=== PATIENT | female | born 1975 | race African-American/Black ===

== ENCOUNTER 2017-07-29 19:54 | Inpatient (IN) | payer MEDICAID ==
[~2017-07-29] VITALS: Ht 162.6 cm; Wt 96.6 kg
[2017-07-29] MEDS ORDERED: DEXT 5%/LR + PITOCIN 20UNITS/L 1,000 ML IV SCH (21:24)
[2017-07-29] MEDS ORDERED: MISOPROSTOL 100MCG TABLET VG SCH (21:30)
[2017-07-29] MEDS ORDERED: METHYLERGONOVINE MALEATE 0.2 MG/ML IM PRN (21:30)
[2017-07-29] MEDS ORDERED: NALOXONE HCL 0.4 MG/ML 1ML VIAL IM PRN (21:30)
[2017-07-29] MEDS ORDERED: BUTORPHANOL TARTRATE 2 MG/ML VIAL IV PRN (21:30)
[2017-07-29] MEDS ORDERED: LIDOCAINE HCL/PF 1% 10 MG/ML 30ML VIAL INFIL NR (21:30)
[2017-07-29] MEDS ORDERED: CARBOPROST TROMETHAMINE 250 MCG/ML AMPUL IM PRN (21:30)
[2017-07-29] MEDS: LACTATED RINGERS 1,000 ML IV SCH ×2 (22:15→23:10)
[2017-07-29] MEDS: CLINDAMYCIN 900 MG in DEXTROSE 5% WATER 50 ML IV SCH (22:16)
[2017-07-29 22:25] LABS: CLARITY URINE CLEAR (CLEAR); COLOR URINE YELLOW (YELLOW); KETONES URINE NEGATIVE (NEGATIVE); LEUKOCYTE ESTERASE URINE TRACE (NEGATIVE); NITRITE URINE NEGATIVE (NEGATIVE); OCCULT BLOOD URINE NEGATIVE (NEGATIVE); PH URINE 6.5 (4.5-8.0); PROTEIN URINE NEGATIVE (NEGATIVE); SPECIFIC GRAVITY URINE 1.007 (1.005-1.030); UROBILINOGEN URINE 0.2 E.U./dL (0.2-1.0)
[2017-07-29 22:28] LABS: BASOPHILS % 0.8 % (0.0-2.0); EOSINOPHILS % 1.1 % (0.0-5.0); HEMATOCRIT. 38.1 % (36.0-48.0); HEMOGLOBIN. 12.7 g/dL (12.0-16.0); LYMPHOCYTES % 37.5 % (20.0-50.0); MEAN CORPUSCULAR VOLUME 93.4 fL (81.0-99.0); MEAN PLATELET VOLUME 8.5 fl (7.4-10.4); MONOCYTES % 9.1 % (2.0-8.0); NEUTROPHILS % 51.5 % (40.0-76.0); PLATELET 240 x1000/uL (130-400); RED BLOOD CELL COUNT 4.08 mill/uL (4.2-5.4); RED CELL DISTRIBUTION WIDTH 15.1 % (11.6-14.6)
[2017-07-29 22:34] LABS: PARTIAL THROMBOPLASTIN TIME 27.8 sec (23.4-31.0); PROTHROMBIN TIME 10.1 sec (9.4-11.6)
[2017-07-29 22:34] LABS: *AMPHETAMINES SCREEN URINE NEGATIVE (NEGATIVE)
[2017-07-29 22:35] LABS: *BARBITURATES SCREEN URINE NEGATIVE (NEGATIVE); *BENZODIAZEPINES SCREEN URINE NEGATIVE (NEGATIVE); *COCAINE SCREEN URINE NEGATIVE (NEGATIVE); METHADONE URINE SCREEN NEGATIVE (NEGATIVE); OPIATES URINE SCREEN NEGATIVE (NEGATIVE); PHENCYCLIDINE URINE SCREEN NEGATIVE (NEGATIVE)
[2017-07-29 22:36] LABS: CANNABINOID URINE SCREEN NEGATIVE (NEGATIVE)
[2017-07-30] MEDS: LACTATED RINGERS 1,000 ML IV SCH (05:48)
[2017-07-30] MEDS: CLINDAMYCIN 900 MG in DEXTROSE 5% WATER 50 ML IV SCH (06:14)
[2017-07-30] MEDS ORDERED: LIDOCAINE HCL 1% 20ML VIAL (Pyxis) INJ ONE (10:06)
[2017-07-30] MEDS ORDERED: PROPOFOL 200MG/20ML VIAL IV ONE (10:06)
[2017-07-30] MEDS ORDERED: SUCCINYLCHOLINE CHLORIDE 200MG/10ML VIAL IV ONE (10:07)
[2017-07-30] MEDS ORDERED: FENTANYL CITRATE/PF 50MCG/ML 2ML VIAL ONE (10:10)
[2017-07-30] MEDS ORDERED: MORPHINE SULFATE/PF 1MG/ML 10ML AMP ONE (10:11)
[2017-07-30] MEDS ORDERED: EPHEDRINE SULFATE 50MG/ML VIAL ONE (10:39)
[2017-07-30] MEDS ORDERED: PHENYLEPHRINE HCL 10 MG/ML 1ML (IV VIAL) IV ONE (10:39)
[2017-07-30] MEDS ORDERED: ONDANSETRON HCL 4MG/2ML VIAL ONE (10:39)
[2017-07-30] MEDS ORDERED: ATROPINE SULFATE 1MG/10ML SYR ONE (10:39)
[2017-07-30] MEDS ORDERED: OXYTOCIN 10 UNITS/ML 1ML ONE ×2 (10:39→10:49)
[2017-07-30] MEDS ORDERED: GLYCOPYRROLATE 0.2 MG/ML 2ML VIAL ONE (10:39)
[2017-07-30 10:41] LABS: HEPATITIS B SURFACE ANTIGEN NEGATIVE; RUBELLA IGG 124.7 IU/mL (4.99-10)
[2017-07-30 10:50] LABS: BG BASE EXCESS -5.7 mmol/L (-2.0-2.0); BG FRACTION INSPIRED OXYGEN 21; BG HCO3 ACT 19.9 mmol/L (22.0-26.0); BG OXYGEN SATURATION 58.1 % (92.0-98.5); BG PCO2 39.6 mmHg (35.0-45.0); BG PH 7.319 (7.350-7.450); BG PO2 32.7 mmHg (75.0-100.0); BG SAMPLE SITE CORD; BG VENT MODE ROOM AIR
[2017-07-30] MEDS ORDERED: IBUPROFEN 400MG TABLET PO PRN (11:00)
[2017-07-30] MEDS ORDERED: KETOROLAC 30MG/ML VIAL IV PRN (11:00)
[2017-07-30] MEDS ORDERED: LANOLIN OINT 0.25 GM TUBE TOP PRN (11:00)
[2017-07-30] MEDS ORDERED: DIPHENHYDRAMINE 25MG CAPSULE PO PRN (11:00)
[2017-07-30] MEDS ORDERED: TETANUS, DIPHTHERIA, PERTUSSIS VAC/PF 0.5ML (>7YR OLD) IM ONE (11:00)
[2017-07-30] MEDS ORDERED: ONDANSETRON HCL 4MG/2ML VIAL IV PRN (11:00)
[2017-07-30] MEDS ORDERED: BISACODYL 10MG SUPP PR PRN (11:00)
[2017-07-30] MEDS ORDERED: BUTORPHANOL TARTRATE 2 MG/ML VIAL IV PRN (11:30)
[2017-07-30] MEDS ORDERED: NALOXONE HCL 0.4 MG/ML 1ML VIAL IV PRN (11:30)
[2017-07-30] MEDS ORDERED: DIPHENHYDRAMINE 50MG/ML VIAL IV PRN (11:30)
[2017-07-30] MEDS: DEXT 5%/LR + PITOCIN 20UNITS/L 1,000 ML IV SCH ×2 (13:29→21:42)
[2017-07-30] MEDS ORDERED: METHYLERGONOVINE MALEATE 0.2 MG/ML ONE (13:48)
[2017-07-30 14:30] VITALS: BP 119/39
[2017-07-30 15:00] VITALS: BP 124/50
[2017-07-30 16:15] VITALS: BP 121/64
[2017-07-30] MEDS: KETOROLAC 30MG/ML VIAL IV PRN ×2 (16:36→21:01)
[2017-07-30 17:02] VITALS: BP 111/42
[2017-07-30] MEDS: DOCUSATE SODIUM 100MG CAPSULE PO SCH (21:00)
[2017-07-30] MEDS: SIMETHICONE 80MG TABLET CHEW PO SCH (21:00)
[2017-07-30 22:00] VITALS: BP 114/55
[2017-07-31 00:30] VITALS: BP 125/63
[2017-07-31] MEDS: KETOROLAC 30MG/ML VIAL IV PRN (03:07)
[2017-07-31 06:00] VITALS: BP 115/65
[2017-07-31 07:01] LABS: BASOPHILS % 0.3 % (0.0-2.0); EOSINOPHILS % 0.3 % (0.0-5.0); HEMATOCRIT. 29.5 % (36.0-48.0); HEMOGLOBIN. 9.8 g/dL (12.0-16.0); LYMPHOCYTES % 14.1 % (20.0-50.0); MEAN CORPUSCULAR HEMOGLOBIN 31.2 pg (28.0-32.0); MEAN CORPUSCULAR VOLUME 93.6 fL (81.0-99.0); MEAN PLATELET VOLUME 8.1 fl (7.4-10.4); MONOCYTES % 6.6 % (2.0-8.0); NEUTROPHILS % 78.7 % (40.0-76.0); PLATELET 203 x1000/uL (130-400); RED BLOOD CELL COUNT 3.15 mill/uL (4.2-5.4); RED CELL DISTRIBUTION WIDTH 15.2 % (11.6-14.6)
[2017-07-31 07:48] VITALS: BP 104/63
[2017-07-31] MEDS: PRENATAL VIT/FE FUMARATE/FA TABLET PO SCH (08:36)
[2017-07-31] MEDS: SIMETHICONE 80MG TABLET CHEW PO SCH ×4 (08:36→21:05)
[2017-07-31] MEDS: FERROUS SULFATE 325MG TABLET PO SCH ×2 (13:07→17:41)
[2017-07-31] MEDS: HYDROCODONE/ACETAMINOPHEN 5/325MG TABLET PO PRN (13:07)
[2017-07-31 13:44] LABS: BG BASE EXCESS -5.3 mmol/L (-2.0-2.0); BG FRACTION INSPIRED OXYGEN 21; BG HCO3 ACT 23.6 mmol/L (22.0-26.0); BG PCO2 60.3 mmHg (35.0-45.0); BG PH 7.211 (7.350-7.450); BG PO2 < 30.3 mmHg (75.0-100.0); BG SAMPLE SITE CORD; BG VENT MODE ROOM AIR
[2017-07-31 16:18] VITALS: BP 104/50
[2017-07-31 19:25] VITALS: BP 126/48
[2017-07-31] MEDS: DOCUSATE SODIUM 100MG CAPSULE PO SCH (21:04)
[2017-07-31 23:40] VITALS: BP 99/60
[2017-08-01] MEDS: HYDROCODONE/ACETAMINOPHEN 5/325MG TABLET PO PRN ×3 (01:53→13:50)
[2017-08-01 03:45] VITALS: BP 124/76
[2017-08-01] MEDS: FERROUS SULFATE 325MG TABLET PO SCH ×3 (07:43→17:51)
[2017-08-01] MEDS: PRENATAL VIT/FE FUMARATE/FA TABLET PO SCH (07:43)
[2017-08-01] MEDS: SIMETHICONE 80MG TABLET CHEW PO SCH ×4 (07:45→21:15)
[2017-08-01 08:00] VITALS: BP 133/72
[2017-08-01 16:00] VITALS: BP 130/58
[2017-08-01 19:40] VITALS: BP 141/67
[2017-08-01] MEDS: DOCUSATE SODIUM 100MG CAPSULE PO SCH (21:15)
[2017-08-01 23:45] VITALS: BP 138/66
[2017-08-02 03:55] VITALS: BP 132/54
[2017-08-02] MEDS ORDERED: TETANUS, DIPHTHERIA, PERTUSSIS VAC/PF 0.5ML (>7YR OLD) IM ONE (06:00)
[2017-08-02] MEDS: FERROUS SULFATE 325MG TABLET PO SCH (07:28)
[2017-08-02] MEDS: HYDROCODONE/ACETAMINOPHEN 5/325MG TABLET PO PRN (07:28)
[2017-08-02] MEDS: PRENATAL VIT/FE FUMARATE/FA TABLET PO SCH (07:29)
[2017-08-02] MEDS: SIMETHICONE 80MG TABLET CHEW PO SCH (07:29)
[2017-08-02 08:00] VITALS: BP 134/55
== END 2017-08-02 12:00 | disposition home or self-care (01) | DRG 540 ==
LOC: OBSVTOIN 19:54 → L&D 19:54 → 7EST PP/OB 07-30 16:22
PROVIDERS: ADMIT Obstetrics & Gynecology; ATTEND Obstetrics & Gynecology
PROC: 10D00Z1 Extraction of Products of Conception, Low, Open Approach (ICD-10-PCS; principal; 2017-07-30 13:00)
DX: O36.8130 Decreased fetal movements, third trimester, not applicable or unspecified (principal); E66.9 Obesity, unspecified; O24.420 Gestational diabetes mellitus in childbirth, diet controlled; D64.9 Anemia, unspecified; O99.03 Anemia complicating the puerperium; O99.214 Obesity complicating childbirth; O34.13 Maternal care for benign tumor of corpus uteri, third trimester; O99.824 Streptococcus B carrier state complicating childbirth; Z3A.40 40 weeks gestation of pregnancy; Z90.49 Acquired absence of other specified parts of digestive tract; O76 Abnormality in fetal heart rate and rhythm complicating labor and delivery; Z37.0 Single live birth; O09.523 Supervision of elderly multigravida, third trimester; Z68.36 Body mass index [BMI] 36.0-36.9, adult
CPT/HCPCS: 36415; 36600; 76805; 76818; 80305; 81003; 82805; 85025; 85610; 85730; 86592; 86703; 86762; 86850; 86900; 87340; 88307; 90715; 99281; J0330; J0461; J1885; J2210; J2274; J2370; J2405; J2590; J2704; J3010; J3490; J7060; J7120

== ENCOUNTER 2017-08-04 16:39 | Emergency (ER) | payer MEDICAID ==
[~2017-08-04] VITALS: Ht 162.6 cm; Wt 97.0 kg
[2017-08-04] MEDS ORDERED: HYDROCODONE/ACETAMINOPHEN 5/325MG TABLET PO ONE (22:45)
[2017-08-04 23:02] VITALS: BP 134/73
== END 2017-08-04 23:03 | disposition home or self-care (01) ==
LOC: ER 16:39
DX: Z48.01 Encounter for change or removal of surgical wound dressing (principal); G89.18 Other acute postprocedural pain; Z88.0 Allergy status to penicillin; Z88.6 Allergy status to analgesic agent
CPT/HCPCS: 99283